=== PATIENT | male | born 1960 | race African-American/Black ===

== ENCOUNTER 2019-04-23 10:38 | Emergency (ER) | payer SELFPAY ==
[2019-04-23 11:10] LABS: Barbiturates NEGATIVE (NEGATIVE); Benzodiazepines NEGATIVE (NEGATIVE); Cocaine NEGATIVE (NEGATIVE); METHAMPHETAM NEGATIVE (NEGATIVE); Methadone NEGATIVE (NEGATIVE); Opiates NEGATIVE (NEGATIVE); Phencyclidine NEGATIVE (NEGATIVE); THC Cannibis NEGATIVE (NEGATIVE)
[2019-04-23 11:13] LABS: Absolute Lymphocytes (CBC) 1.1 K/uL (0.7-4.9); Basophils % 1.1 % (0-1.3); Eosinophils % 9.8 % (0-4.4); Hematocrit 45.4 % (39.6-49.0); Lymphocytes % 27.9 % (15.3-44.8); MPV 9.2 fL (7.6-11.3); Monocytes % 5.5 % (3.3-12.3); RBC Red Blood Cell Count 4.99 M/uL (4.33-5.43)
[2019-04-23 11:28] LABS: Urine Blood NEGATIVE (NEG); Urine Glucose NEGATIVE (NEG); Urine Protein NEGATIVE (NEG); Urine pH 5.5 (5.0-7.0)
--- NOTE | 2019-04-23 11:31 | RAD REPORT ---
EXAM DESCRIPTION: RAD - Chest Single View - 04/23/2019 11:25 am CLINICAL HISTORY: CHEST PAIN Chest pain. COMPARISON: Chest Single View dated 06/06/2016; CHEST PA AND LAT 2 VIEW dated 09/16/2015 FINDINGS: Portable technique limits examination quality. The lungs are grossly clear. The heart is normal in size. No displaced fractures. IMPRESSION: No acute intrathoracic process suspected.
[2019-04-23 11:33] LABS: ALT/SGPT 18 U/L (12-78); AST/SGOT 22 U/L (15-37); Alkaline Phosphatase 68 U/L (45-117); BUN Blood Urea Nitrogen 15 mg/dL (7-18); Bicarbonate 28 mmol/L (21-32); Bilirubin Direct 0.1 mg/dL (0-0.2); Bilirubin Total 0.5 mg/dL (0.2-1.0); Glucose Level 92 mg/dL (74-106); Magnesium 2.3 mg/dL (1.8-2.4); NT PRO-BNP 10 pg/mL (<125); Potassium 4.5 mmol/L (3.5-5.1); Protein, Total 7.6 g/dL (6.4-8.2); Sodium Level 139 mmol/L (136-145); Troponin (Emerg Dept Use Only) < 0.02 ng/mL (0.0-0.045)
--- NOTE | 2019-04-23 12:31 | ER ---
Nurse's Notes [facility] Name: Erasmo Adamson Age: 58 yrs Sex: Male : 1960 Arrival Date: 04/23/2019 Time: 10:38 Bed 8 Private MD: Diagnosis: Presentation: 04/23 10:40 Presenting complaint: EMS states: pt complaining of pain in the substernal area of the sg chest that radiates to different areas of the chest, pt states after two rounds of nitro the pain is much better, pt reports to EMS using Cocaine but has not done drugs in several years now, denies N/V/D/Fever at this time. Transition of care: patient was not received from another setting of care. Onset of symptoms was April 23, 2019. Risk Assessment: Do you want to hurt yourself or someone else? Patient reports no desire to harm self or others. Initial Sepsis Screen: Does the patient meet any 2 criteria? No. Patient's initial sepsis screen is negative. Does the patient have a suspected source of infection? No. Patient's initial sepsis screen is negative. Care prior to arrival: Medication(s) given: Nitroglycerin, 0.4 mg SL x 2, IV initiated. 20 GA, in the left antecubital area. 10:40 Method Of Arrival: EMS: [facility] sg 10:40 Acuity: DAYO 3 sg Historical: - Allergies: 10:47 No Known Allergies; sg - Home Meds: 10:47 gabapentin 300 mg Oral cap 1 cap 3 times per day [Active]; sg 10:56 duloxetine 20 mg oral cpDR 1 cap 2 times per day [Active]; prazosin 2 mg Oral cap 1 cap sg 2 times per day [Active]; cyclobenzaprine 10 mg Oral tab 1 tab 2 times per day [Active]; - PMHx: 10:47 Depression; PTSD; ulcerative colitis; sg - PSHx: 10:47 None; sg - Immunization history:: Adult Immunizations not up to date. - Social history:: Smoking status: Patient/guardian denies using tobacco. - Ebola Screening: : Patient negative for fever greater than or equal to 101.5 degrees Fahrenheit, and additional compatible Ebola Virus Disease symptoms Patient denies exposure to infectious person Patient denies travel to an Ebola-affected area in the 21 days before illness onset No symptoms or risks identified at this time. Screenin:46 Abuse screen: Denies threats or abuse. Denies injuries from another. Nutritional sg screening: No deficits noted. Tuberculosis screening: No symptoms or risk factors identified. Never had TB. Fall Risk None identified. Assessment: 10:53 General: Appears in no apparent distress. comfortable, well groomed, well developed, sg well nourished, Behavior is calm, cooperative, appropriate for age. Pain: Denies pain. Neuro: Level of Consciousness is awake, alert, obeys commands, Oriented to person, place, time, Editor [employer]ounder are equal bilaterally Moves all extremities. Full function Gait is steady, Speech is normal, Facial symmetry appears normal, Pupils are PERRLA. Cardiovascular: Heart tones S1 S2 present Patient's skin is warm and dry. Chest pain is denied. Respiratory: Airway is patent Respiratory effort is even, unlabored, Respiratory pattern is regular, symmetrical. GI: Abdomen is flat, non-distended, Reports normal bowel habits, tolerance of fluids, tolerance of food. : No signs and/or symptoms were reported regarding the genitourinary system. EENT: No signs and/or symptoms were reported regarding the EENT system. Derm: Skin is intact, is healthy with good turgor, Skin is dry, Skin is normal, Skin temperature is warm. Musculoskeletal: No signs and/or symptoms reported regarding the musculoskeletal system. 11:51 Reassessment: Patient appears in no apparent distress at this time. Patient and/or sg family updated on plan of care and expected duration. Pain level reassessed. Patient is alert, oriented x 3, equal unlabored respirations, skin warm/dry/pink. Patient denies pain at this time. Patient states feeling better. 12:05 Reassessment: pt reports feeling better, pain is denied, no distress noted at this sg time, pt states " My doctor just sent me over here for a follow up, I feel much better, if i feel bad again I'll just come back." pt educated on AMA risks, pt stated understanding, pt signed AMA, notified. Vital Signs: 10:40 BP 110 / 75; Pulse 87; Resp 18; Temp 97.6; Pulse Ox 100% on R/A; Weight 67.13 kg; sg Height 5 ft. 8 in. (172.72 cm); Pain 0/10; 11:55 BP 115 / 70; Pulse 82; Resp 17; Pulse Ox 100% on R/A; sg 10:40 Body Mass Index 22.50 (67.13 kg, 172.72 cm) ED Course: 10:38 Patient arrived in ED. sg 10:42 Neri Arce MD is Attending Physician. [facility] 10:46 Triage completed. sg 10:46 Arm band placed on. sg 10:46 No provider procedures requiring assistance completed. Initial lab(s) drawn, by ne, sg sent to lab. Maintain EMS IV. Dressing intact. Good blood return noted. Site clean \\T\\ dry. Gauge \\T\\ site: 20 G LAC. IV is patent, is intact, with good blood return, Changed dressing on left antecubital. 10:48 Delio Varma, RN is Primary Nurse. sg 11:20 X-ray completed. Portable x-ray completed in exam room. Patient tolerated procedure ml well. 11:26 XRAY Chest (1 view) In Process Unspecified. EDMS 11:59 EKG done, by diet technician registered. reviewed by Neri Arce MD. tc Administered Medications: No medications were administered Outcome: 12:04 AMA AMA form signed sg 12:04 Condition: stable 12:04 Instructed on follow up and referral plans. safety practices, Demonstrated understanding of instructions. 12:30 Patient left the ED. Signatures: Dispatcher [employer] EDMS Delio Varma, VALENTE RN Neri Mcdermott MD MD cha Lopez, Melissa ml Callis, Tiffany, fixture designer EKG Ttc Corrections: (The following items were deleted from the chart) 10:54 10:40 Initial Sepsis Screen: Does the patient meet any 2 criteria? No. Patient's sg initial sepsis screen is negative. Does the patient have a suspected source of infection? No. Patient's initial sepsis screen is negative. 10:54 10:40 Care prior to arrival: IV initiated. 20 GA, in the left antecubital area, [facility]
--- NOTE | 2019-04-23 15:06 | EKG ---
Test Date: 2019-04-23 Test Time: 11:09:44 Bpm Architect: HARRIET MEASUREMENT RESULTS: Intervals: Rate: 54 MD: 162 QRSD: 86 QT: 412 QTc: 390 [place]: P: 68 MD: 162 QRS: 11 T: 17 INTERPRETIVE STATEMENTS: Sinus bradycardia Cannot rule out Anteroseptal infarct, age undetermined Abnormal ECG Compared to ECG 06/08/2016 02:41:33 Sinus rhythm no longer present Myocardial infarct finding still present Electronically Signed On 04-23-19 15:05:30 CDT by Grey Ortiz
== END 2019-04-23 12:30 | disposition left against medical advice (07) ==
LOC: ER 10:38
DX: R07.9 Chest pain, unspecified (principal); F32.9 Major depressive disorder, single episode, unspecified; Z53.29 Procedure and treatment not carried out because of patient's decision for other reasons
CPT/HCPCS: 36415; 71045; 80048; 80076; 80307; 80320; 80329; 81003; 83735; 83880; 84484; 85025; 85610; 93005; 99284